=== PATIENT | male | born 1975 | race Two or more races ===

== ENCOUNTER 2022-05-11 16:50 | Inpatient (IN) | payer OTHER ==
[2022-05-11] MEDS ORDERED: MAGNESIUM CITRATE 300 ML BOTTLE PO PRN (20:09)
[2022-05-11] MEDS ORDERED: hydrOXYzine PAMOATE 25 MG CAPSULE (FP) PO PRN (20:09)
[2022-05-11] MEDS ORDERED: BENZOCAINE/MENTHOL (CHLORASEPTIC ) LOZENGE MM PRN (20:09)
[2022-05-11] MEDS ORDERED: IBUPROFEN 400 MG TABLET (FP) PO PRN (20:09)
[2022-05-11] MEDS ORDERED: METHOCARBAMOL 500 MG TABLET PO PRN (20:09)
[2022-05-11] MEDS ORDERED: NALOXONE HCL (KLOXXADO) 8 MG SPRAY NS PRN (20:09)
[2022-05-11] MEDS ORDERED: guaiFENesin 200 MG/10 ML 10 ML UNIT-DOSE CUPS PO PRN (20:09)
[2022-05-11] MEDS ORDERED: MAGNESIUM HYDROX 2400MG/30ML ORAL SUSPENSION 30 ML CUP PO PRN (20:09)
[2022-05-11] MEDS ORDERED: P-EPHED 60MG/TRIPROLIDI 2.5MG TABLET PO PRN (20:09)
[2022-05-11] MEDS ORDERED: ONDANSETRON *ODT* 4 MG TABLET SL PRN (20:09)
[2022-05-11] MEDS ORDERED: ACETAMINOPHEN 325 MG TABLET (FP) PO PRN ×2 (20:09)
[2022-05-11] MEDS ORDERED: LOPERAMIDE HCL 2 MG CAPSULE PO PRN (20:09)
[2022-05-11] MEDS ORDERED: DICYCLOMINE HCL 10 MG CAPSULE PO PRN (20:09)
[2022-05-11] MEDS ORDERED: NICOTINE POLACRILEX 2 MG GUM BUC PRN (20:09)
[2022-05-11] MEDS ORDERED: BISMUTH SUBSALICYLATE 524 MG/30 ML PO PRN (20:09)
[2022-05-11] MEDS ORDERED: IBUPROFEN 600 MG TABLET (FP) PO PRN (20:09)
[2022-05-11] MEDS ORDERED: MAG HYDROX/AL HYDROX/SIMETH 30 ML UNIT-DOSE CUP PO PRN (20:09)
[2022-05-11] MEDS ORDERED: THIAMINE HCL 100 MG TABLET (FP) PO SCH (22:00)
[2022-05-11] MEDS ORDERED: MELATONIN 5 MG TABLETS PO SCH (22:00)
[2022-05-12 08:55] VITALS: RESP 16
[2022-05-12] MEDS ORDERED: methaDONE HCL 10 MG TABLET (FOR DETOX USE ONLY) PO ONE (09:11)
[2022-05-12] MEDS ORDERED: cloNIDine HCL 0.1 MG TABLET PO PRN (09:11)
[2022-05-12] MEDS ORDERED: PRENATAL VITAMINS W/ FOLIC ACID TABLET (FP) PO SCH (10:00)
[2022-05-12] MEDS ORDERED: NICOTINE 14 MG/24 HOURS TOPICAL PATCH TD SCH (10:00)
[2022-05-12] MEDS ORDERED: NICOTINE 10 MG CARTRIDGE (INHALER) IH PRN (12:51)
[2022-05-12 13:03] VITALS: BP 146/98; PULSE 62; TEMP 98
[2022-05-12 17:33] LABS: URINE APPEARANCE TURBID; URINE BILIRUBIN NEGATIVE (NEGATIVE); URINE COLOR YELLOW; URINE GLUCOSE (UA) NEGATIVE (NEGATIVE); URINE KETONE NEGATIVE (NEGATIVE); URINE LEUK ESTERASE NEGATIVE (NEGATIVE); URINE NITRITE NEGATIVE (NEGATIVE); URINE PROTEIN NEGATIVE (NEGATIVE)
[2022-05-12] MEDS ORDERED: QUEtiapine FUMARATE 200 MG TABLET PO SCH (22:00)
[2022-05-14] MEDS ORDERED: methaDONE HCL 10 MG TABLET (FOR DETOX USE ONLY) PO ONE (10:00)
[2022-05-16] MEDS ORDERED: methaDONE HCL 10 MG TABLET (FOR DETOX USE ONLY) PO ONE (10:00)
== END 2022-05-12 17:16 | disposition left against medical advice (07) | DRG 770 ==
LOC: YASAS 16:50 → Y3N 20:30
PROVIDERS: ADMIT Allergy & Immunology; ATTEND Surgery
PROC: HZ2ZZZZ Detoxification Services for Substance Abuse Treatment (ICD-10-PCS; principal; 2022-05-11)
DX: F10.230 Alcohol dependence with withdrawal, uncomplicated (principal); F11.20 Opioid dependence, uncomplicated; F14.20 Cocaine dependence, uncomplicated; F17.210 Nicotine dependence, cigarettes, uncomplicated; F20.9 Schizophrenia, unspecified; F19.24 Other psychoactive substance dependence with psychoactive substance-induced mood disorder; F41.9 Anxiety disorder, unspecified; I10 Essential (primary) hypertension; Z86.19 Personal history of other infectious and parasitic diseases; Z91.012 Allergy to eggs
CPT/HCPCS: 81003; 93005; 93010; C9803-CS; U0003; U0005

== ENCOUNTER 2024-01-01 17:18 | Emergency (ER) | payer OTHER ==
[2024-01-01 17:30] VITALS: BP 134/89; PULSE 79; RESP 18; TEMP 98.1; BMI 20.2
[2024-01-01] MEDS ORDERED: diphenhydrAMINE HCL 25 MG CAPSULE (FP) PO ONE (18:12)
[2024-01-01] MEDS: diphenhydrAMINE HCL 25 MG CAPSULE (FP) PO ONE (18:13)
== END 2024-01-01 18:18 | disposition home or self-care (01) ==
LOC: JERFT 17:18
DX: R21 Rash and other nonspecific skin eruption (principal)
CPT/HCPCS: 99283-25

== ENCOUNTER 2024-02-01 20:18 | Emergency (ER) | payer OTHER ==
[2024-02-01 20:28] VITALS: BMI 19.5
[2024-02-01] MEDS ORDERED: ACETAMINOPHEN 500 MG TABLET (FP) ONE (22:30)
[2024-02-01 22:33] LABS: BASO % 0.3 % (0-2.0); EOS % 0.1 % (0-4.5); HEMATOCRIT 40.3 % (35.4-49); HEMOGLOBIN 13.7 GM/dL (11.7-16.9); LYMPH % 19.1 % (8-40); MCH 29.3 pg (25.7-33.7); MEAN CELL VOLUME 86.2 fl (80-96); MEAN PLT VOLUME 8.1 fl (7.5-11.1); MONO % 11.1 % (3.8-10.2); NEUT % 69.4 % (42.8-82.8); PLATELET COUNT 110 10^3/uL (134-434); RBC 4.67 M/mm3 (4.00-5.60); RDW 12.8 % (11.9-15.9); WHITE BLOOD COUNT 9.1 K/mm3 (4.0-10.0)
[2024-02-01] MEDS: ACETAMINOPHEN 500 MG TABLET (FP) PO ONE (22:34)
[2024-02-01 22:53] LABS: POTASSIUM 4.3 mmol/L (3.5-5.1)
[2024-02-01 22:55] LABS: CALCIUM 9.1 mg/dL (8.5-10.1)
[2024-02-01 22:56] LABS: ALBUMIN 4.3 g/dl (3.4-5.0); BLOOD UREA NITROGEN 18.3 mg/dL (7-18)
[2024-02-01 22:59] LABS: CREATININE 0.7 mg/dL (0.55-1.3)
[2024-02-01 23:00] LABS: TOT PROT 7.8 g/dl (6.4-8.2)
[2024-02-01 23:44] VITALS: BP 118/56; PULSE 68; RESP 14; TEMP 99.1
[2024-02-02] MEDS ORDERED: ceFAZolin SODIUM 1 GM VIAL ONE (00:23)
[2024-02-02] MEDS: CEFAZOLIN 1 GM in DEXTROSE 5%-WATER - 50 ML IVPB ONE (00:30)
== END 2024-02-02 02:00 | disposition home or self-care (01) ==
LOC: JER 20:18
DX: L03.115 Cellulitis of right lower limb (principal); R50.9 Fever, unspecified; M25.571 Pain in right ankle and joints of right foot
CPT/HCPCS: 36415; 73610-TC-RT-FY; 73630-TC-LT; 73630-TC-RT-FY; 80053; 83605; 85025; 93971-TC; 96365; 99285-25

== ENCOUNTER 2025-02-15 16:24 | Inpatient (IN) | payer OTHER ==
[2025-02-15 16:59] VITALS: BMI 18.8
[2025-02-15] MEDS ORDERED: MAGNESIUM HYDROX 2400MG/30ML ORAL SUSPENSION 30 ML CUP PO PRN (17:21)
[2025-02-15] MEDS ORDERED: LOPERAMIDE HCL 2 MG CAPSULE PO PRN (17:21)
[2025-02-15] MEDS ORDERED: DICYCLOMINE HCL 10 MG CAPSULE PO PRN (17:21)
[2025-02-15] MEDS ORDERED: POLYETHYLENE GLYCOL (HEALTHYLAX) 3350 17 GM PACKET PO PRN (17:21)
[2025-02-15] MEDS ORDERED: MAG HYDROX/AL HYDROX/SIMETH 30 ML UNIT-DOSE CUP PO PRN (17:21)
[2025-02-15] MEDS ORDERED: BENZOCAINE/MENTHOL (CHLORASEPTIC ) LOZENGE MM PRN (17:21)
[2025-02-15] MEDS ORDERED: IBUPROFEN 400 MG TABLET (FP) PO PRN (17:21)
[2025-02-15] MEDS ORDERED: guaiFENesin 600 MG TABLET.ER (FP) PO PRN (17:21)
[2025-02-15] MEDS ORDERED: BISMUTH SUBSALICYLATE 524 MG/30 ML PO PRN (17:21)
[2025-02-15] MEDS ORDERED: IBUPROFEN 600 MG TABLET (FP) PO PRN (17:21)
[2025-02-15] MEDS ORDERED: BENZONATATE 200 MG CAPSULE PO PRN (17:21)
[2025-02-15] MEDS ORDERED: ACETAMINOPHEN 325 MG TABLET (FP) PO PRN (17:21)
[2025-02-15] MEDS ORDERED: NALOXONE (NARCAN) HCL 4 MG/0.1 ML SPRAY NS PRN (17:21)
[2025-02-15] MEDS ORDERED: NICOTINE POLACRILEX 4 MG GUM BUC PRN (17:21)
[2025-02-15] MEDS ORDERED: ONDANSETRON *ODT* 4 MG TABLET SL PRN (17:21)
[2025-02-15] MEDS: THIAMINE 100 MG TABLET PO SCH (22:27)
[2025-02-15] MEDS: MELATONIN 5 MG TABLETS PO SCH (22:27)
[2025-02-16] MEDS: KETOCONAZOLE 2% TOPICAL CREAM 15 GM TUBE TP SCH (09:36)
[2025-02-16] MEDS: PRENATAL VITAMINS W/ FOLIC ACID TABLET (FP) PO SCH (09:38)
[2025-02-16] MEDS: NICOTINE 21 MG/24 HOURS TOPICAL PATCH TD SCH (09:39)
[2025-02-16 11:45] LABS: MCHC 32.5 g/dl (32.3-36.5); MEAN CELL VOLUME 88.7 fl (79.0-92.2); MEAN PLT VOLUME 11.2 fl (9.4-12.4); RDW 12.6 % (12.1-15.9)
[2025-02-16] MEDS: PNEUMOC 20-VAL CONJ-DIP CRM/PF 0.5 ML SYRINGE IM ONE (12:04)
[2025-02-16 13:41] LABS: GLUCOSE,RANDOM 131 mg/dL (74-106)
[2025-02-16 13:47] LABS: CO2 28 mmol/L (21-32)
[2025-02-16 13:50] LABS: CREATININE 0.9 mg/dL (0.55-1.3); SGOT/AST 23 U/L (15-37); SGPT/ALT 25 U/L (13-61); TOT PROT 6.8 g/dl (6.4-8.2)
[2025-02-16 13:53] LABS: ALK PHOS 161 U/L (45-117)
[2025-02-18] MEDS: hydrOXYzine PAMOATE 25 MG CAPSULE (FP) PO PRN (17:27)
[2025-02-18] MEDS: METHOCARBAMOL 500 MG TABLET PO PRN (17:27)
[2025-02-20 09:02] VITALS: TEMP 97.1
[2025-02-20 13:18] VITALS: BP 122/57; PULSE 68; RESP 14
== END 2025-02-20 09:40 | disposition home or self-care (01) | DRG 773 ==
LOC: YASAS 16:24 → Y3N 18:36
PROVIDERS: ADMIT Neuromusculoskeletal Medicine & OMM; ATTEND Allergy & Immunology
PROC: HZ2ZZZZ Detoxification Services for Substance Abuse Treatment (ICD-10-PCS; principal; 2025-02-15)
DX: F11.23 Opioid dependence with withdrawal (principal); F14.23 Cocaine dependence with withdrawal; F20.9 Schizophrenia, unspecified; F41.9 Anxiety disorder, unspecified; Z59.02 Unsheltered homelessness; F17.210 Nicotine dependence, cigarettes, uncomplicated
CPT/HCPCS: 36415; 80053; 80305; 80307; 85027; 86780; 93005; 93010